=== PATIENT | male | born 1955 | race Caucasian/White ===

== ENCOUNTER → 2019-12-13 08:39 | Outpatient (BNVA) | payer MEDICAID, SELFPAY | PROVIDERS: Family Provider Family Medicine; PCP Family Medicine; Visit Provider Family Medicine | DX: G40.909 Epilepsy, unspecified, not intractable, without status epilepticus (principal); I10 Essential (primary) hypertension; E78.5 Hyperlipidemia, unspecified | CPT/HCPCS: 80053; 80061; 85025 ==

== ENCOUNTER → 2021-12-22 12:19 | Outpatient (BNVA) | payer MEDICARE, MEDICAID, SELFPAY | PROVIDERS: Family Provider Family Medicine; PCP Family Medicine; Visit Provider Internal Medicine Cardiovascular Disease | DX: R55 Syncope and collapse (principal); I10 Essential (primary) hypertension; F17.210 Nicotine dependence, cigarettes, uncomplicated; Z95.1 Presence of aortocoronary bypass graft; E78.5 Hyperlipidemia, unspecified; Z72.89 Other problems related to lifestyle; R00.1 Bradycardia, unspecified | CPT/HCPCS: 93005; 99204 ==

== ENCOUNTER 2023-01-06 04:56 | Emergency (ER) | payer MEDICARE, MEDICAID, SELFPAY ==
[2023-01-06 04:57] VITALS: BP 153/71; PULSE 80; RESP 12; TEMP 36.6; O2SAT 98; BMI 23.0
--- NOTE | 2023-01-06 04:58 | XRR_ITS ---
PROCEDURE INFORMATION: Exam: XR Chest Exam date and time: 01/06/2023 5:01 AM Age: 67 years old Clinical indication: Chest wall pain; Prior surgery; Surgery date: 6+ months; Surgery type: Stent; Additional info: Cp TECHNIQUE: Imaging protocol: Radiologic exam of the chest. Views: 1 view. COMPARISON: CR XR chest 1V [id number] 04/30/2017 6:26 PM FINDINGS: Lungs: Unremarkable. No consolidation. Pleural spaces: Unremarkable. No pleural effusion. No pneumothorax. Heart/Mediastinum: Unremarkable. No cardiomegaly. Bones/joints: Widening of the right acromioclavicular joint space. XR/XR chest 1V portable [id number] IMPRESSION: No acute cardiopulmonary findings.
--- NOTE | 2023-01-06 04:58 | ECG_ITS ---
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 Measurements Intervals [place] Rate: 59 P: 65 [place]: 196 QRS: 16 QRSD: 109 T: 52 QT: 440 QTc: 437 Interpretive Statements SINUS BRADYCARDIA Compared to ECG 05/01/2017 03:37:44 Sinus rhythm no longer present Electronically Signed On 01-06-2023 11:18:43 CDT by Ramakrishna Reagan M.D. [id number]
--- NOTE | 2023-01-06 05:01 | ED_ITS ---
HPI - Chest Pain General: Chief Complaint: Chest Pain Stated Complaint: CHEST PAIN Time Seen by Provider: 01/06/23 04:57 Source: patient and EMS Limitations: no limitations History of Present Illness: 67-year-old male states he has been having left-sided sharp chest pain for over a month. States pain sharp in nature denies any worsening improving factors he states pain currently is a 6 out of 10 denies abdominal pain patient states he has been drinking alcohol tonight. Associated symptoms: Deny abdominal pain, dyspnea, fever(s), nausea or vomiting Review of Systems Const: Denies: fever(s), chills, body aches or change in appetite Eyes: Denies: blurry vision or eye discomfort ENMT: Denies: throat pain or dental pain Card: Reports: chest pain Resp: Denies: dyspnea GI: Denies: abdominal pain, nausea, vomiting or diarrhea : Denies: dysuria Musc: Denies: neck pain or back pain Skin/Breast: Denies: rash Neuro: Denies: headache(s) PFSH ED PFSH: Medical History ASCVD (arteriosclerotic cardiovascular disease) ASHD (arteriosclerotic heart disease) CAD (coronary artery disease) COPD (chronic obstructive pulmonary disease) History of hydrocele right and left Hyperlipidemia Hypertension Neuropathy, idiopathic Seizure disorder Smoker Surgical History History of arthroscopic knee surgery right History of coronary artery stent placement History of eye surgery OS Social History Smoking and tobacco status: current every day smoker (0.5 ppd) cigarettes Packs smoked per day: 0.5 Alcohol intake: current Alcohol intake frequency: holidays/special occasions only Physical Exam Const: COMMON NORMALS: no acute distress, patient oriented x3 and healthy appearing GENERAL APPEARANCE: odor of alcohol detected HENMT: COMMON NORMALS: normocephalic and atraumatic HEAD & SCALP: normocephalic and atraumatic Eye: COMMON NORMALS: Equal, round and reactive pupils present and EOMs intact bilaterally PUPIL: Yes Equal, round and reactive pupils present Neck/C-Spine: COMMON NORMALS: full ROM and supple Chest: COMMONS NORMALS: normal inspection of the chest and normal palpation of entire chest wall Resp: COMMON NORMALS: normal respiratory effort, No retractions, No use of accessory muscles and clear to auscultation bilaterally AUSCULTATION: clear to auscultation bilaterally Cardio: COMMON NORMALS: regular rate, regular rhythm and No murmurs present (Cardio) RATE: regular rate RHYTHM: regular rhythm GI: COMMON NORMALS: Normal to inspection, nondistended, normoactive bowel sounds present, Soft to palpation, non-tender and no masses PALPATION: Yes Soft to palpation Extremity: COMMON NORMALS: normal to inspection and full ROM Neuro: COMMON NORMALS: patient oriented x3, moves all extremities and no focal motor deficits Psych: COMMON NORMALS: mental status grossly normal, Normal thought process present and cooperative THOUGHT PROCESS: Normal thought process present Skin: COMMON NORMALS: no rashes or lesions noted and no wounds GENERAL SKIN EXAM: no rashes or lesions noted Course Vital Signs: Vital signs: Vital Signs Temperature 98 F 01/06/23 07:00 Pulse Rate 59 L 01/06/23 05:54 Respiratory Rate 20 H 01/06/23 05:54 Blood Pressure 125/62 01/06/23 05:54 Pulse Oximetry 95 01/06/23 05:54 Oxygen Delivery Me thod Room Air 01/06/23 05:33 MDM - Chest Pain Medical Decision Making Patient presents for chest pains atypical in nature has been going on for a month his initial troponin here is normal lipase is normal other blood work looks normal as well he has no signs of dissection or pulmonary embolism he is stable for discharge she is to follow-up with his PCP or sterile processing technologist and return if worsening Medical Records I reviewed the patient's medical records. Lab Data I reviewed the patient's lab results. 01/06/23 05:13 01/06/23 05:13 Radiology Impressions Chest X-Ray 01/06/23 04:58 IMPRESSION: No acute cardiopulmonary findings. Laboratory Results WBC 8.11 10^3/uL (3.29-11.43) 01/06/23 05:13 RBC 4.71 10^6/uL (3.85-5.65) 01/06/23 05:13 Hgb 14.70 g/dL (11.27-16.99) 01/06/23 05:13 Hct 41.5 % (37-53) 01/06/23 05:13 MCV 88.1 fl (82-101) 01/06/23 05:13 MCH 31.2 pg (27-33) 01/06/23 05:13 MCHC 35.4 g/dL (30-55) 01/06/23 05:13 RDW 12.8 % (12.1-15.1) 01/06/23 05:13 Plt Count 200 10^3/cmm (157-399) 01/06/23 05:13 MPV 12.3 fL (7.4-10.4) H 01/06/23 05:13 Neut % (Auto) 54.8 % 01/06/23 05:13 Lymph % (Auto) 36.0 % 01/06/23 05:13 [place] % (Auto) 7.2 % 01/06/23 05:13 Eos % (Auto) 1.4 % 01/06/23 05:13 Baso % (Auto) 0.4 % 01/06/23 05:13 Neut # (Auto) 4.45 10^3/uL (1.8-7.7) 01/06/23 05:13 Lymph # (Auto) 2.9 10^3/uL (0.8-4.8) 01/06/23 05:13 [place] # (Auto) 0.6 10^3/uL (0.2-0.9) 01/06/23 05:13 Eos # (Auto) 0.1 10^3/uL (0.0-0.8) 01/06/23 05:13 Baso # (Auto) 0.0 10^3/uL (0.0-0.1) 01/06/23 05:13 Nucleated RBC % (auto) 0 % 01/06/23 05:13 Nucleated RBCs # 0.0 /100WBC 01/06/23 05:13 Sodium 128 mmol/L (136-145) L 01/06/23 05:13 Potassium 3.2 mmol/L (3.5-5.1) L 01/06/23 05:13 Chloride 87 mmol/L (98-107) L 01/06/23 05:13 Carbon Dioxide 29 mmol/L (22-29) 01/06/23 05:13 Anion Gap 15.2 (5-19) 01/06/23 05:13 BUN 16 mg/dL (8-23) 01/06/23 05:13 Creatinine 0.8 mg/dL (0.7-1.2) 01/06/23 05:13 GFR Calculation 96.4 mL/min (90-130) 01/06/23 05:13 Glucose 89 mg/dL (65-115) 01/06/23 05:13 Calculated Osmolality 267 mOsm/kg (285-295) L 01/06/23 05:13 Calcium 9.0 mg/dL (8.5-10.5) 01/06/23 05:13 Total Bilirubin 0.5 mg/dL (0.15-1.2) 01/06/23 05:13 AST 19 U/L (0-40) 01/06/23 05:13 ALT 13 U/L (0-41) 01/06/23 05:13 Alkaline Phosphatase 66 U/L (40-130) 01/06/23 05:13 Troponin T Baseline 10 ng/L (0-15) 01/06/23 05:13 Total Protein 6.7 g/dL (6.6-8.7) 01/06/23 05:13 Albumin 4.6 g/dL (3.5-5.2) 01/06/23 05:13 Globulin 2.1 g/dL (1.3-4.6) 01/06/23 05:13 Lipase 61 U/L (13-60) H 01/06/23 05:13 Ethyl Alcohol 235 mg/dL (0-10) H 01/06/23 05:13 All radiology interpretation(s) finalized by discharge EKG Data EKG 1: I personally reviewed and interpreted this EKG as follows: EKG interpretation date: 01/06/23 EKG interpretation time: 04:59 Interpretation: sinus familia hr [address] or t wave abnormalities qrs 109 qtc 439 Discharge Plan Discharge Patient Disposition: Home Clinical Impression: Chest pain, Alcohol abuse Condition: Stable Prescriptions: No Action aspirin [Adult Aspirin Regimen] 81 mg tablet,delayed release (DR/EC) 81 mg PO QDAY chlorthalidone 25 mg tablet 25 mg PO DAILY Qty: 90 3RF duloxetine [Cymbalta] 60 mg capsule,delayed release(DR/EC) 60 mg PO QDAY Qty: 90 3RF Combivent Respimat 20-100 mcg/actuation mist 1 puff INHALATION QID PRN (Reason: shortness of breath or wheezing) Qty: 4 6R F simvastatin 20 mg tablet 20 mg PO QDAY Qty: 90 3RF pantoprazole 40 mg tablet,delayed release (DR/EC) See Rx Instructions .ROUTE .COMPLEX Qty: 90 3RF Dose Instruction: TAKE ONE TABLET BY MOUTH ONCE DAILY Rx Instructions: TAKE ONE TABLET BY MOUTH ONCE DAILY nitroglycerin 0.4 mg tablet, sublingual See Rx Instructions .ROUTE .COMPLEX Qty: 50 2RF Dose Instruction: DISSOLVE 1 TABLET UNDER THE TONGUE EVERY 5 MINUTES NEEDED FOR CHEST PAIN. MAX OF 3 TABLETS IN 15 MINUTES. CALL 911 IF PAIN PERSISTS. Rx Instructions: DISSOLVE 1 TABLET UNDER THE TONGUE EVERY 5 MINUTES NEEDED FOR CHEST PAIN. MAX OF 3 TABLETS IN 15 MINUTES. CALL 911 IF PAIN PERSISTS. metoprolol succinate 50 mg tablet extended release 24 hr See Rx Instructions .ROUTE .COMPLEX Qty: 180 3RF Dose Instruction: TAKE 1 TABLET BY MOUTH TWICE DAILY Rx Instructions: TAKE 1 TABLET BY MOUTH TWICE DAILY losartan 100 mg tablet 100 mg PO QDAY Qty: 90 3RF levetiracetam 500 mg tablet 500 mg PO BID Qty: 180 3RF amlodipine 10 mg tablet See Rx Instructions .ROUTE .COMPLEX Qty: 90 3RF Dose Instruction: TAKE ONE TABLET BY MOUTH ONCE DAILY Rx Instructions: TAKE ONE TABLET BY MOUTH ONCE DAILY Zyrtec 10 mg capsule 10 mg PO QDAY Qty: 30 5RF Discharge Orders: Discharge ED (Routine); Ordered 01/06/23 Ordered By: Marcos Terry Referrals: Nilay Sorensen DO [Primary Care Provider] - Kiran Mendoza MD [Physician] - Discharge Diet: Advance as tolerated Discharge Activity: Resume usual activity Patient Instructions: Chest Pain (ED) Coding Level of Care Code ED Dosier Operator for Woo Locke
[2023-01-06 05:18] LABS: Basophils % 0.4 %; Eosinophils # 0.1 10^3/uL (0.0-0.8); Eosinophils % 1.4 %; Hematocrit 41.5 % (37-53); Lymphocytes # 2.9 10^3/uL (0.8-4.8); Mean Corpuscular HGB Conc 35.4 g/dL (30-55); Mean Corpuscular Hemoglobin 31.2 pg (27-33); Mean Corpuscular Volume 88.1 fl (82-101); Mean Platelet Volume 12.3 fL (7.4-10.4); Monocytes # 0.6 10^3/uL (0.2-0.9); Monocytes % 7.2 %; Neutrophils # 4.45 10^3/uL (1.8-7.7); Neutrophils % 54.8 %; Nucleated Red Blood Cells % 0 %; Platelet Count 200 10^3/cmm (157-399); Red Blood Count 4.71 10^6/uL (3.85-5.65); Red Cell Distribution Width 12.8 % (12.1-15.1); White Blood Count 8.11 10^3/uL (3.29-11.43)
[2023-01-06 05:33] VITALS: BP 126/54; PULSE 59; RESP 18; O2SAT 95
[2023-01-06 05:37] LABS: Troponin(5th) Baseline 10 ng/L (0-15)
[2023-01-06 05:40] LABS: Alanine Aminotransferase 13 U/L (0-41); Albumin Level 4.6 g/dL (3.5-5.2); Alcohol Level 235 mg/dL (0-10); Alkaline Phosphatase 66 U/L (40-130); Anion Gap 15.2 (5-19); Aspartate Amino Transferase 19 U/L (0-40); Blood Urea Nitrogen 16 mg/dL (8-23); Carbon Dioxide 29 mmol/L (22-29); Chloride 87 mmol/L (98-107); Globulin 2.1 g/dL (1.3-4.6); Glomerular Filtration Rate 96.4 mL/min (90-130); Glucose 89 mg/dL (65-115); Lipase 61 U/L (13-60); Osmolality Calculated 267 mOsm/kg (285-295); Potassium 3.2 mmol/L (3.5-5.1); Sodium 128 mmol/L (136-145); Total Bilirubin 0.5 mg/dL (0.15-1.2); Total Protein 6.7 g/dL (6.6-8.7)
[2023-01-06 05:54] VITALS: BP 125/62; PULSE 59; RESP 20; O2SAT 95
--- NOTE | 2023-01-06 06:14 | PC.NURSE ---
Left a message for patients contact center manager to call back up to ER. re: ride for patient.
[2023-01-06 07:00] VITALS: TEMP 36.6
== END 2023-01-06 11:00 | disposition home or self-care (01) ==
PROVIDERS: Emergency Provider Emergency Medicine; PCP Family Medicine
DX: R07.9 Chest pain, unspecified (principal); F10.10 Alcohol abuse, uncomplicated; Z79.82 Long term (current) use of aspirin; F17.210 Nicotine dependence, cigarettes, uncomplicated; I25.10 Atherosclerotic heart disease of native coronary artery without angina pectoris; J44.9 Chronic obstructive pulmonary disease, unspecified; E72.3 Disorders of lysine and hydroxylysine metabolism; I10 Essential (primary) hypertension
CPT/HCPCS: 71045; 80053; 80307; 83690; 84484; 85025; 93005; 99285

== ENCOUNTER 2024-12-10 14:16 | Emergency (ER) | payer OTHER, MEDICAID, SELFPAY ==
--- NOTE | 2024-12-10 14:21 | ECG_ITS ---
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 Measurements Intervals [place] Rate: 68 P: 62 NM: 170 QRS: 5 QRSD: 97 T: 69 QT: 420 QTc: 449 Interpretive Statements SINUS RHYTHM WITH OCCASIONAL VENTRICULAR PREMATURE COMPLEXES SEPTAL MYOCARDIAL INFARCTION , OF INDETERMINATE AGE [40+ ms Q WAVE IN V1/V2] Compared to ECG 01/06/2023 04:59:18 Ventricular premature complex(es) now present Myocardial infarct finding now present Sinus bradycardia no longer present Electronically Signed On 12-11-2024 21:48:23 CDT by Eligio Tello M.D. [email or web address] [id number]
--- NOTE | 2024-12-10 14:21 | XRR_ITS ---
PROCEDURE INFORMATION: Exam: XR Chest Exam date and time: 12/10/2024 2:28 PM Age: 69 years old Clinical indication: Dyspnea; Additional info: SOB TECHNIQUE: Imaging protocol: Radiologic exam of the chest. Views: 1 view. COMPARISON: CR XR chest 1V portable [id number] 01/06/2023 5:01 AM FINDINGS: Lungs: Unremarkable. No consolidation. Low lung volumes. Pleural spaces: Unremarkable. No pleural effusion. No pneumothorax. Heart/Mediastinum: Unremarkable. No cardiomegaly. Bones/joints: Unremarkable. XR/XR chest 1V portable [id number] IMPRESSION: No evidence of acute cardiopulmonary process.
[2024-12-10 14:24] VITALS: PULSE 63; RESP 16; O2SAT 96; BMI 23.0
--- NOTE | 2024-12-10 14:27 | W.ED.CHESTPA ---
HPI - Chest Pain General: Chief Complaint: Chest Pain Stated Complaint: CP, SOB Time Seen by Provider: 12/10/24 14:18 Source: patient Mode of arrival: ambulatory Limitations: no limitations History of Present Illness: 69-year-old male states he woke up around midnight having some chest pains. He states it was a dull aching pain that is since resolved he denies any pain currently. States he had a history of 1 stent in the past history of smoking does have a history of COPD. States the pain lasted roughly for 30 minutes denies any worse or improving factors denies any nausea vomiting or abdominal pain Associated symptoms: Reports dyspnea; Deny abdominal pain, fever(s), nausea or vomiting Related Data Home Medications ?Medication ?Instructions ?Recorded ?Confirmed aspirin 81 mg tablet,delayed 81 mg PO QPM 05/11/19 12/10/24 release (Adult Aspirin Regimen) amlodipine 10 mg tablet 10 mg PO QPM 12/10/24 12/10/24 cetirizine 10 mg tablet (Zyrtec) 10 mg PO QPM 12/10/24 12/10/24 chlorthalidone 25 mg tablet 25 mg PO QPM 12/10/24 12/10/24 duloxetine 60 mg capsule,delayed 60 mg PO QPM 12/10/24 12/10/24 release gabapentin 300 mg capsule 300 mg PO BEDTIME 12/10/24 12/10/24 levetiracetam 500 mg 500 mg PO QPM 12/10/24 12/10/24 tablet,extended release 24 hr losartan 100 mg tablet 100 mg PO QPM 12/10/24 12/10/24 metoprolol succinate 50 mg 50 mg PO BID 12/10/24 12/10/24 tablet,extended release 24 hr pantoprazole 40 mg tablet,delayed 40 mg PO QPM 12/10/24 12/10/24 release simvastatin 20 mg tablet 20 mg PO QPM 12/10/24 12/10/24 tamsulosin 0.4 mg capsule 0.4 mg PO QPM 12/10/24 12/10/24 varenicline tartrate 0.5 mg (11)-1 See Rx Instructions .Route .COMPLEX 12/10/24 12/10/24 mg (42) tablets in a dose pack Previous Rx's ?Medication ?Instructions ?Recorded ipratropium 20 mcg-albuterol 100 1 puff inhalation QID PRN 12/16/22 mcg/actuation mist for inhalation shortness of breath or wheezing #4 (Combivent Respimat) grams nitroglycerin 0.4 mg sublingual See Rx Instructions .Route 12/16/22 tablet .COMPLEX #50 tabs potassium chloride 20 mEq 20 meq PO BID #10 tabs 12/10/24 tablet,extended release (K-Tab) Allergies Allergy/AdvReac Type Severity Reaction Status Date / Time No Known Allergies Allergy Verified 01/06/23 05:02 Review of Systems Const: Denies: fever(s), chills, body aches or change in appetite ENMT: Denies: throat pain or dental pain Card: Reports: chest pain Resp: Reports: dyspnea GI: Denies: abdominal pain, nausea, vomiting or diarrhea Musc: Denies: neck pain or back pain Skin/Breast: Denies: rash Neuro: Denies: headache(s) PFSH ED PFSH: Medical History Smoker CAD (coronary artery disease) History of hydrocele right and left ASHD (arteriosclerotic heart disease) ASCVD (arteriosclerotic cardiovascular disease) Neuropathy, idiopathic COPD (chronic obstructive pulmonary disease) Hyperlipidemia Hypertension Seizure disorder Surgical History History of eye surgery OS History of arthroscopic knee surgery right History of coronary artery stent placement Social History Smoking and tobacco/nicotine status: current every day tobacco/nicotine user (0.5 ppd) cigarettes Packs smoked per day: 0.5 Alcohol intake: current Alcohol intake frequency: holidays/special occasions only Physical Exam Const: COMMON NORMALS: no acute distress, patient oriented x3 and healthy appearing HENMT: COMMON NORMALS: normocephalic and atraumatic HEAD & SCALP: normocephalic and atraumatic Eye: COMMON NORMALS: conjunctivae normal CONJUNCTIVA: Yes conjunctivae normal Neck/C-Spine: COMMON NORMALS: full ROM and supple Chest: COMMONS NORMALS: normal inspection of the chest and normal palpation of entire chest wall Resp: COMMON NORMALS: normal respiratory effort, No retractions, No use of accessory muscles and clear to auscultation bilaterally AUSCULTATION: clear to auscultation bilaterally Cardio: COMMON NORMALS: regular rate, regular rhythm and No murmurs present (Cardio) RATE: regular rate RHYTHM: regular rhythm GI: COMMON NORMALS: Normal to inspection, nondistended, normoactive bowel sounds present, Soft to palpation, non-tender and no masses PALPATION: Yes Soft to palpation Extremity: COMMON NORMALS: normal to inspection and full ROM Neuro: COMMON NORMALS: patient oriented x3, moves all extremities and no focal motor deficits Psych: COMMON NORMALS: mental status grossly normal, Normal thought process present and cooperative THOUGHT PROCESS: Normal thought process present Skin: COMMON NORMALS: no rashes or lesions noted and no wounds GENERAL SKIN EXAM: no rashes or lesions noted Course Vital Signs: Vital signs: Vital Signs Temperature 98.9 F 12/10/24 14:30 Pulse Rate 68 12/10/24 15:00 Respiratory Rate 21 H 12/10/24 15:00 Blood Pressure 136/97 12/10/24 15:00 Pulse Oximetry 94 12/10/24 15:00 Oxygen Delivery Me thod Room Air 12/10/24 14:24 MDM - Chest Pain Medical Decision Making Patient presents for the complaint chest pain that started at midnight and only lasted for short amount of time he had been chest pain-free since then his initial troponin here is negative no signs of ACS he has no signs of dissection or pulmonary embolism he is hypokalemic we will place him on potassium supplement he is to follow-up with PCP return if worsening. Medical Records I reviewed the patient's medical records. Lab Data I reviewed the patient's lab results. 12/10/24 14:28 12/10/24 14:28 Radiology Impressions Chest X-Ray 12/10/24 14:21 IMPRESSION: No evidence of acute cardiopulmonary process. Laboratory Results WBC 6.13 10^3/uL (3.29-11.43) 12/10/24 14:28 RBC 4.75 10^6/uL (3.85-5.65) 12/10/24 14:28 Hgb 14.50 g/dL (11.27-16.99) 12/10/24 14:28 Hct 41.4 % (37-53) 12/10/24 14:28 MCV 87.2 fl (82-101) 12/10/24 14:28 MCH 30.5 pg (27-33) 12/10/24 14:28 MCHC 35.0 g/dL (30-55) 12/10/24 14:28 RDW 12.9 % (12.1-15.1) 12/10/24 14:28 Plt Count 214 10^3/cmm (157-399) 12/10/24 14:28 MPV 12.0 fL (7.4-10.4) H 12/10/24 14:28 Neut % (Auto) 69.0 % 12/10/24 14:28 Lymph % (Auto) 20.9 % 12/10/24 14:28 [place] % (Auto) 8.5 % 12/10/24 14: Eos % (Auto) 0.8 % 12/10/24 14: Baso % (Auto) 0.5 % 12/10/24 14: Neut # (Auto) 4.23 10^3/uL (1.8-7.7) 12/10/24 14: Lymph # (Auto) 1.3 10^3/uL (0.8-4.8) 12/10/24 14:28 [place] # (Auto) 0.5 10^3/uL (0.2-0.9) 12/10/24 14:28 Eos # (Auto) 0.1 10^3/uL (0.0-0.8) 12/10/24 14:28 Baso # (Auto) 0.0 10^3/uL (0.0-0.1) 12/10/24 14: Nucleated RBC % (auto) 0 % 12/10/24 14: Nucleated RBCs # 0.0 /100WBC 12/10/24 14:28 Sodium 138 mmol/L (136-145) 12/10/24 14:28 Potassium 2.8 mmol/L (3.5-5.1) L* 12/10/24 14: Chloride 95 mmol/L (98-107) L 12/10/24 14:28 Carbon Dioxide 30 mmol/L (22-29) H 12/10/24 14:28 Anion Gap 15.8 (5-19) 12/10/24 14:28 BUN 8 mg/dL (8-23) 12/10/24 14:28 Creatinine 0.7 mg/dL (0.7-1.2) 12/10/24 14:28 GFR Calculation 111.8 mL/min (90-130) 12/10/24 14:28 Glucose 124 mg/dL (65-115) H 12/10/24 14:28 Calculated Osmolality 286 mOsm/kg (285-295) 12/10/24 14:28 Calcium 9.5 mg/dL (8.5-10.5) 12/10/24 14:28 Total Bilirubin 0.9 mg/dL (0.15-1.2) 12/10/24 14:28 AST 18 U/L (0-40) 12/10/24 14:28 ALT 11 U/L (0-41) 12/10/24 14:28 Alkaline Phosphatase 83 U/L (40-130) 12/10/24 14:28 Troponin T Baseline 13 ng/L (0-15) 12/10/24 14:28 Total Protein 6.6 g/dL (6.6-8.7) 12/10/24 14:28 Albumin 4.3 g/dL (3.5-5.2) 12/10/24 14:28 Globulin 2.3 g/dL (1.3-4.6) 12/10/24 14:28 Lipase 24 U/L (13-60) 12/10/24 14:28 All radiology interpretation(s) finalized by discharge EKG Data EKG 1: I personally reviewed and interpreted this EKG as follows: EKG interpretation date: 12/10/24 EKG interpretation time: 14:21 Interpretation: nsr hr [address] elevation qrs 97 qtc 438 Clincial Decision Support The following clinical decision support tools were used to aid in care of the patient HEART Score -> History: Slightly Suspicous, EKG: Normal, Age: 65 or more yrs, Risk Factors: 1 or 2 Risk Factors, Troponin: Baseline Trop <16 ng/L. Resulting HEART Score: 3. Discharge Plan Discharge Patient Disposition: Home Clinical Impression: Chest pain, Hypokalemia Condition: Stable Prescriptions: New potassium chloride [K-Tab] 20 mEq tablet extended release 20 meq PO BID Qty: 10 0RF No Action aspirin [Adult Aspirin Regimen] 81 mg tablet,delayed release (DR/EC) 81 mg PO QPM Combivent Respimat 20-100 mcg/actuation mist 1 puff INHALATION QID PRN (Reason: shortness of breath or wheezing) Qty: 4 6RF nitroglycerin 0.4 mg tablet, sublingual See Rx Instructions .ROUTE .COMPLEX Qty: 50 2RF Dose Instruction: DISSOLVE 1 TABLET UNDER THE TONGUE EVERY 5 MINUTES NEEDED FOR CHEST PAIN. MAX OF 3 TABLETS IN 15 MINUTES. CALL 911 IF PAIN PERSISTS. Rx Instructions: DISSOLVE 1 TABLET UNDER THE TONGUE EVERY 5 MINUTES NEEDED FOR CHEST PAIN. MAX OF 3 TABLETS IN 15 MINUTES. CALL 911 IF PAIN PERSISTS. cetirizine [Zyrtec] 10 mg Tablet 10 mg PO QPM tamsulosin 0.4 mg capsule 0.4 mg PO QPM gabapentin 300 mg capsule 300 mg PO BEDTIME duloxetine 60 mg capsule,delayed release(DR/EC) 60 mg PO QPM varenicline tartrate 0.5 mg (11)- 1 mg (42) tablets,dose pack See Rx Instructions .ROUTE .COMPLEX Rx Instructions: Take as directed per package instructions. levetiracetam 500 mg tablet extended release 24 hr 500 mg PO QPM metoprolol succinate 50 mg tablet extended release 24 hr 50 mg PO BID chlorthalidone 25 mg tablet 25 mg PO QPM amlodipine 10 mg tablet 10 mg PO QPM pantoprazole 40 mg tablet,delayed release (DR/EC) 40 mg PO QPM simvastatin 20 mg tablet 20 mg PO QPM losartan 100 mg tablet 100 mg PO QPM Discharge Orders: Discharge ED (Routine); Ordered 12/10/24 Ordered By: Marcos Terry Referrals: Nilay Sorensen DO [Primary Care Provider, Family Practice] - 4-7 days Discharge Diet: Advance as tolerated Discharge Activity: Resume usual activity Patient Instructions: Chest Pain (ED), Hypokalemia (ED) Print Language: Belgian Coding Level of Care Code ED Margarine Churn Operator for Woo Locke
[2024-12-10 14:30] VITALS: TEMP 37.2
[2024-12-10 14:31] VITALS: BP 136/97
[2024-12-10 14:39] LABS: Hematocrit 41.4 % (37-53); Hemoglobin 14.50 g/dL (11.27-16.99); Mean Corpuscular HGB Conc 35.0 g/dL (30-55); Mean Corpuscular Hemoglobin 30.5 pg (27-33); Mean Corpuscular Volume 87.2 fl (82-101); Nucleated Red Blood Cells % 0 %; Platelet Count 214 10^3/cmm (157-399); Red Blood Count 4.75 10^6/uL (3.85-5.65); White Blood Count 6.13 10^3/uL (3.29-11.43)
[2024-12-10 15:00] VITALS: BP 136/97; PULSE 68; RESP 21; O2SAT 94
[2024-12-10 15:02] LABS: Troponin(5th) Baseline 13 ng/L (0-15)
[2024-12-10 15:07] LABS: Alanine Aminotransferase 11 U/L (0-41); Albumin Level 4.3 g/dL (3.5-5.2); Alkaline Phosphatase 83 U/L (40-130); Aspartate Amino Transferase 18 U/L (0-40); Blood Urea Nitrogen 8 mg/dL (8-23); Calcium 9.5 mg/dL (8.5-10.5); Carbon Dioxide 30 mmol/L (22-29); Chloride 95 mmol/L (98-107); Creatinine Clr Calc Pharmacy 95.4117; Globulin 2.3 g/dL (1.3-4.6); Glucose 124 mg/dL (65-115); Lipase 24 U/L (13-60); Osmolality Calculated 286 mOsm/kg (285-295); Sodium 138 mmol/L (136-145); Total Protein 6.6 g/dL (6.6-8.7)
[2024-12-10 15:24] LABS: Anion Gap 15.8 (5-19)
[2024-12-10 15:25] LABS: Potassium 2.8 mmol/L (3.5-5.1)
[2024-12-10 16:27] VITALS: BP 139/77; PULSE 68; O2SAT 93
== END 2024-12-10 16:28 | disposition home or self-care (01) ==
PROVIDERS: Emergency Provider Emergency Medicine; PCP Family Medicine
DX: R07.9 Chest pain, unspecified (principal); E87.6 Hypokalemia; Z79.82 Long term (current) use of aspirin; F17.210 Nicotine dependence, cigarettes, uncomplicated; E78.5 Hyperlipidemia, unspecified; I10 Essential (primary) hypertension; J44.9 Chronic obstructive pulmonary disease, unspecified; I25.10 Atherosclerotic heart disease of native coronary artery without angina pectoris
CPT/HCPCS: 36415; 71045; 80053; 83690; 84484; 85025; 93005; 99285; J9999